=== PATIENT | female | born 1970 | race Caucasian/White ===

== ENCOUNTER 2018-09-09 14:11 | Emergency (ER) | payer BC ==
[~2018-09-09] VITALS: Ht 154.9 cm; Wt 64.9 kg
[2018-09-09] MEDS ORDERED: LIPITOR10 MG PO (14:19)
[2018-09-09] MEDS ORDERED: CYMBALTA30 MG PO (14:19)
[2018-09-09 15:26] LABS: ABSOLUTE LYMPHOCYTES 1.8 thou/uL (0.8-5.3); ABSOLUTE MONOCYTES 0.7 thou/uL (0.0-1.2); ABSOLUTE NEUTROPHILS 7.1 thou/uL (1.6-8.1); BASOPHILS 0.1 %; EOSINOPHILS 0.4 %; HEMATOCRIT 39.2 % (37.0-47.0); HEMOGLOBIN 13.5 gm/dL (12.0-15.0); LYMPHOCYTES 18.8 %; MCH 30.1 pg (26.0-34.0); MCHC 34.5 g/dL (28.0-37.0); MCV 87.2 fL (80.0-100.0); MPV 7.8 fl. (7.2-11.1); NUCLEATED RBCS 0 /100WBC; PLATELET COUNT* 278 thou/uL (150-400); POLYS 73.7 %; RBC 4.49 mil/uL (4.20-5.00); RDW-CV 12.9 % (10.5-14.5); WBC 9.7 thou/uL (4.0-11.0)
[2018-09-09 15:39] LABS: PROTIME 10.5 Seconds (9.20-11.50)
[2018-09-09 15:40] LABS: ANION GAP 10 mmol/L (7-16); BUN 10 mg/dL (7-18); CALCIUM 8.9 mg/dL (8.5-10.1); CHLORIDE 102 mmol/L (98-107); CO2 28 mmol/L (21-32); CREATININE 0.9 mg/dL (0.6-1.3); GLUCOSE 158 mg/dL (70-99); POTASSIUM 3.2 mmol/L (3.5-5.1); SODIUM 140 mmol/L (136-145); TROPONIN-I LEVEL <0.06 ng/mL (<0.06)
[2018-09-09 15:42] LABS: ALBUMIN 4.1 g/dL (3.4-5.0); ALKALINE PHOSPHATASE 50 U/L (46-116); LIPASE 230 U/L (73-393); NT-PRO BRAIN NAT PEPTIDE 23 pg/mL (<300); SGOT 12 U/L (15-37); SGPT 22 U/L (30-65); TOTAL BILIRUBIN 0.4 mg/dL (<0.1-1.0); TOTAL PROTEIN 7.6 g/dL (6.4-8.2)
[2018-09-09 15:58] VITALS: BP 122/77
--- NOTE | 2018-09-10 18:18 | EKG ---
[place] [address] ELECTROCARDIOGRAM REPORT Name: BUD JULES Room: [facility]#: [id number] Admission: 09/09/18 Attend Phys: Discharge: 09/09/18 Date of : 74 Report #: [id number] THIS REPORT FOR: //name// [facility] ED Test Date: 2018-09-09 Test Time: 14:16:49 Pat Name: BUD JULES Department: Room: Gender: F Storage Manager: OLIVIA : 1970 Requested By: Marcelle Jerome Order Number: [id number] MD: Javi Dhillon Measurements Intervals [place] Rate: 82 P: 0 MT: 111 QRS: 2 QRSD: 99 T: 25 QT: 364 QTc: 425 Interpretive Statements Sinus rhythm Borderline short MT interval RSR' in V1 or V2, right VCD or RVH No previous ECG available for comparison Electronically Signed On 09-10-2018 18:18:49 CDT by Javi Dhillon [email or web address] <ELECTRONICALLY SIGNED> By: Javi Dhillon MD, [facility] 09/10/18 1818 1416 15 Javi Dhillon MD, FACC /EPI
== END 2018-09-09 15:59 | disposition home or self-care (01) ==
LOC: M.ERS 14:11
PROVIDERS: Personal Emergency Response Attendant
DX: K22.4 Dyskinesia of esophagus (principal); E78.00 Pure hypercholesterolemia, unspecified; Z88.0 Allergy status to penicillin; Z90.710 Acquired absence of both cervix and uterus

== ENCOUNTER 2019-02-22 16:27 | Emergency (ER) | payer OTHER ==
[~2019-02-22] VITALS: Ht 157.5 cm; Wt 68.0 kg
[~2019-02-22 16:27] MED LIST: CYMBALTA30 MG PO; LIPITOR10 MG PO
[2019-02-22] MEDS ORDERED: ADDERALL 10 MG10 MG PO (16:40)
[2019-02-22 16:45] LABS: URINE BILIRUBIN NEGATIVE (Negative); URINE BLOOD TRACE (Negative); URINE CLARITY CLEAR; URINE COLOR YELLOW; URINE GLUCOSE-RANDOM NEGATIVE (Negative); URINE KETONES NEGATIVE (Negative); URINE LEUKOCYTES-REFLEX NEGATIVE (Negative); URINE NITRITE-REFLEX NEGATIVE (Negative); URINE PROTEIN NEGATIVE (Negative); URINE UROBILINOGEN 0.2 E.U./dl (0.2-1.0)
[2019-02-22 16:58] LABS: ABSOLUTE LYMPHOCYTES 2.8 thou/uL (0.8-5.3); ABSOLUTE NEUTROPHILS 7.4 thou/uL (1.6-8.1); BASOPHILS 0.4 %; EOSINOPHILS 0.4 %; HEMATOCRIT 38.3 % (37.0-47.0); HEMOGLOBIN 13.1 gm/dL (12.0-15.0); LYMPHOCYTES 24.7 %; MCH 29.8 pg (26.0-34.0); MCHC 34.2 g/dL (28.0-37.0); MONOCYTES 8.8 %; MPV 7.6 fl. (7.2-11.1); NUCLEATED RBCS 0 /100WBC; PLATELET COUNT* 266 thou/uL (150-400); POLYS 65.7 %; RDW-CV 12.5 % (10.5-14.5); WBC 11.2 thou/uL (4.0-11.0)
[2019-02-22 17:06] LABS: CALCIUM 8.7 mg/dL (8.5-10.1); CREATININE 0.8 mg/dL (0.6-1.3); POTASSIUM 3.4 mmol/L (3.5-5.1)
[2019-02-22 17:10] LABS: TOTAL BILIRUBIN 0.3 mg/dL (<0.1-1.0); TOTAL PROTEIN 7.2 g/dL (6.4-8.2)
[2019-02-22] MEDS ORDERED: NORCO 5-325 TA1 EAC1 PO (18:03)
[2019-02-22] MEDS ORDERED: CIPRO500 MG PO (18:03)
[2019-02-22] MEDS ORDERED: FLAGYL500 M1 PO (18:03)
[2019-02-22] MEDS ORDERED: ONDANSETRON HCL4 M2 PO (18:03)
[2019-02-22 18:24] VITALS: BP 133/65
[2019-02-23] MEDS ORDERED: PHENERGAN12.5 M2 RECTAL (10:06)
[2019-02-23] MEDS ORDERED: PHENERGAN 25 MG25 M1 PO (10:06)
== END 2019-02-22 18:26 | disposition home or self-care (01) ==
LOC: M.ERS 16:27
PROVIDERS: Nurse Practitioner Family
DX: K57.32 Diverticulitis of large intestine without perforation or abscess without bleeding (principal); E78.00 Pure hypercholesterolemia, unspecified; Z88.0 Allergy status to penicillin; Z90.710 Acquired absence of both cervix and uterus

== ENCOUNTER 2019-02-23 07:34 | Emergency (ER) | payer OTHER ==
[~2019-02-23] VITALS: Ht 157.5 cm; Wt 63.5 kg
[~2019-02-23 07:34] MED LIST changes: +ADDERALL 10 MG10 MG PO; +CIPRO500 MG PO; +FLAGYL500 M1 PO; +NORCO 5-325 TA1 EAC1 PO; +ONDANSETRON HCL4 M2 PO
[2019-02-23] MEDS ORDERED: PHENERGAN 25 MG25 M1 PO (10:06)
[2019-02-23] MEDS ORDERED: PHENERGAN12.5 M2 RECTAL (10:06)
[2019-02-23 10:33] VITALS: BP 121/70
== END 2019-02-23 10:35 | disposition home or self-care (01) ==
LOC: M.ERS 07:34
DX: K57.92 Diverticulitis of intestine, part unspecified, without perforation or abscess without bleeding (principal); Z90.710 Acquired absence of both cervix and uterus; E78.00 Pure hypercholesterolemia, unspecified; Z88.0 Allergy status to penicillin